=== PATIENT | female | born 1985 | race Caucasian/White ===

== ENCOUNTER 2017-01-26 17:56 | Emergency (ER) | payer MEDICAID ==
[~2017-01-26] VITALS: Ht 170.2 cm; Wt 67.4 kg
[2017-01-26 18:29] VITALS: BP 133/87
== END 2017-01-27 00:19 | disposition left against medical advice (07) ==
LOC: ER 18:21
DX: R05 Cough (principal); Z53.21 Procedure and treatment not carried out due to patient leaving prior to being seen by health care provider